=== PATIENT | female | born 1980 | race Asian ===

== ENCOUNTER 2018-03-23 23:22 | Emergency (ER) | payer BC, OTHER ==
[~2018-03-23] VITALS: Wt 59.5 kg
[2018-03-24] MEDS ORDERED: SOD CHLORIDE 0.9% 1,000 ML IV STA (00:09)
[2018-03-24] MEDS ORDERED: ONDANSETRON 4 MG INJ IV STA (00:09)
[2018-03-24 01:45] VITALS: BP 96/55; PULSE 78; RESP 19
--- NOTE | 2018-03-24 04:27 | ERD ---
ER Documentation Chief Complaint Chief Complaint bib self, cc: n/v diarrhea and pelvic pain all at once,hx of cyst, and fibr HPI 37-year-old female presents emerged department complaining of episode of nausea vomiting and diarrhea today along with pelvic pain which has resolved. Patient continues to feel nauseous. Patient denies pelvic pain, abdominal pain, dysuria, hematuria. Patient states that she has been planning to have a right cyst removal in about 1 week from now. ROS All systems reviewed and are negative except as per history of present illness. Allergies Allergies: Coded Allergies: No Known Allergy (Unverified , 03/23/18) PMhx/Soc Medical and Surgical Hx: pt denies Medical Hx, pt denies Surgical Hx Hx Alcohol Use: No Hx Substance Use: No Hx Tobacco Use: No Smoking Status: Never smoker Physical Exam Vitals Vital Signs Date Temp Pulse Resp B/P (MAP) Pulse Ox O2 O2 Flow FiO2 Time Delivery Rate 03/24/18 98.2 78 19 96/55 (69) 100 Room Air 01:45 03/23/18 98.3 83 19 126/65 100 23:30 (85) Physical Exam GENERAL: well-developed/well-nourished, in no apparent distress, non-toxic appearing HENT: NC/AT, moist mucous membranes EYES: Conjunctiva normal NECK: Supple, no lymphadenopathy PULM: CTA bilaterally, no rales, rhonchi, or wheezing heard CV: Normal S1S2, RRR, good capillary refill GI: Soft, non-distended, non-tender to palpation Normal bowel sounds, no masses or organomegaly felt on exam No gross peritonitis, no bruits Negative Rovsing, negative Leija, negative McBurney's point, Negative CVAT BACK: No masses EXT: No clubbing, cyanosis, or edema NEURO: Alert and Orientated SKIN: Intact, normal turgor PSYCH: Normal mood and mentation Result Diagram: 03/24/186 03/24/186 Results 24 hrs Laboratory Tests Test 03/24/18 00:24 03/24/18 00:35 03/24/18 00:46 Urine Color YELLOW Urine Clarity SLIGHTLY CLOUDY Urine pH 5.0 Urine Specific [place] 1.024 Urine Ketones NEGATIVE mg/dL Urine Nitrite NEGATIVE mg/dL Urine Bilirubin NEGATIVE mg/dL Urine Urobilinogen 1+ mg/dL Urine Leukocyte Esterase NEGATIVE Ashleigh/ul Urine Microscopic RBC 3 /HPF Urine Microscopic WBC 3 /HPF Urine Mucus MANY /HPF Urine Hemoglobin NEGATIVE mg/dL Urine Glucose NEGATIVE mg/dL Urine Total Protein 1+ mg/dl POC Beta HCG, Qualitative NEGATIVE White Blood Count 9.2 10^3/ul Red Blood Count 3.70 10^6/ul Hemoglobin 11.3 g/dl Hematocrit 35.6 % Mean Corpuscular Volume 96.2 fl Mean Corpuscular Hemoglobin 30.5 pg Mean Corpuscular 31.7 g/dl Hemoglobin Concent Red Cell Distribution Width 13.2 % Platelet Count 206 10^3/UL Mean Platelet Volume 10.3 fl Immature Granulocytes % 0.300 % Neutrophils % 90.8 % Lymphocytes % 5.3 % Monocytes % 3.5 % Eosinophils % 0.0 % Basophils % 0.1 % Nucleated Red Blood Cells % 0.0 /100WBC Immature Granulocytes # 0.030 10^3/ul Neutrophils # 8.4 10^3/ul Lymphocytes # 0.5 10^3/ul Monocytes # 0.3 10^3/ul Eosinophils # 0.0 10^3/ul Basophils # 0.0 10^3/ul Nucleated Red Blood Cells # 0.0 10^3/ul Sodium Level 139 mmol/L Potassium Level 3.7 mmol/L Chloride Level 100 mmol/L Carbon Dioxide Level 26 mmol/L Anion Gap 13 Blood Urea Nitrogen 14 mg/dl Creatinine 0.59 mg/dl Est Glomerular Filtrat > 60 mL/min Rate mL/min Glucose Level 119 mg/dl Calcium Level 9.2 mg/dl Total Bilirubin 0.8 mg/dl Direct Bilirubin 0.00 mg/dl Indirect Bilirubin 0.8 mg/dl Aspartate Amino Transf (AST/SGOT) 26 IU/L Alanine 24 IU/L Aminotransferase (ALT/SGPT) Alkaline Phosphatase 43 IU/L Total Protein 9.1 g/dl Albumin 4.7 g/dl Globulin 4.40 g/dl Albumin/Globulin Ratio 1.06 Lipase 74 U/L Current Medications Medications Dose Sig/Cornelio Start Time Status Last (Trade) Ordered Route PRN Stop Time Admin Dose Reason Admin Sodium 1,000 ml @ Q1H STAT 03/24/18 DC 03/24/18 Chloride 1,000 mls/hr IV 00:09 03/24/18 00:50 01:08 Ondansetron 4 mg ONCE STAT 03/24/18 DC 03/24/18 HCl (Zofran IV 00:09 03/24/18 00:50 Inj) 00:14 Procedures/MDM This is a 37-year-old female presenting to emerge department complaining of nausea vomiting diarrhea that occurred today likely to be viral. Patient also had pelvic pain while she was vomiting but that it resolved right afterwards. Patient looks well, she is afebrile and nontoxic. I doubt acute abdominal situation at this time. I discussed with her to return if she starts to have pelvic pain again, I have given her ovarian torsion precautions. Patient stable to be discharged home with return precautions. She understands agrees this plan Departure Diagnosis: Primary Impression: Nausea and vomiting Additional Impression: Nausea vomiting and diarrhea Condition: Stable Patient Instructions: Self-Care for Vomiting and Diarrhea, Nausea and Vomiting-Adult, Diet, Vomiting Or Diarrhea [6Yr-Adult] Additional Instructions: Return to this facility if you are not improving as expected. RUTH ARCE PA-C Mar 24, 2018 04:26
== END 2018-03-24 01:46 | disposition home or self-care (01) ==
LOC: FTE 23:22
DX: R11.2 Nausea with vomiting, unspecified (principal); R19.7 Diarrhea, unspecified
CPT/HCPCS: 36415; 80053; 81001; 81025; 83690; 85025; 96374; 99284; J2405; J7030